=== PATIENT | female | born 1985 | race Caucasian/White ===

== ENCOUNTER 2017-01-31 12:24 | Emergency (ER) | payer MEDICAID ==
[2017-01-31 12:29] VITALS: TEMP 97.9
[2017-01-31] MEDS ORDERED: Lidocaine 5% Patch TD STA (12:43)
[2017-01-31] MEDS ORDERED: HYDROmorphone 0.5 mg/0.5 ml ISec IM STA (12:43)
--- NOTE | 2017-01-31 12:43 | C.PDOC ---
History Of Present Illness 31 y/o female presents to the ED s/p slip and fall yesterday now complaining of lower back contusion. Pt states she slipped on wet floor while getting out of tub. Pt struck lower back on edge of tub. Pain is localized, worse with movement. Pt denies associated weakness, numbness or any other injury. SP SLIP AND FALL YESTERDAY CO LOWER BACK CONTUSION. PS SLIPPED ON WET FLOOR WHILE GETTING OUT OF TUB, STRUCK LOWER BACK ON EDGE OF TUB. PAIN LOCALIZED WORSE W MOVEMENT. NO ASSOC WEAK/NUMB. DENIES OTHER INJURY EXAM MOD DIST NONTOXIC BACK DIFFUSE TEND LOWER BACK OVER SACRUM/LS SPINE. NO DEFORM. NO SWELL. SKIN INTACT NO ERYTHEMA, BRUISING NEURO INTACT Time Seen by Provider: 01/31/17 12:37 Chief Complaint (Nursing): Back Pain History Per: Patient History/Exam Limitations: no limitations Onset/Duration Of Symptoms: Hrs Current Symptoms Are (Timing): Still Present Quality Of Discomfort: "Pain" Severity: Moderate Previous Symptoms: None Associated Symptoms: None Exacerbating Factor(s): Movement Recent travel outside of the [place]: No Past Medical History Reviewed: Historical Data, Nursing Documentation, Vital Signs Vital Signs: Last Vital Signs Temp 97.9 F 01/31/17 12:28 Pulse 76 01/31/17 12:28 Resp 20 01/31/17 12:28 BP 119/70 01/31/17 12:28 Pulse Ox 98 01/31/17 13:42 - Medical History PMH: Bipolar Disorder, Depression, Schizophrenia Family History: States: Unknown Family Hx - Social History Hx Tobacco Use: Yes Hx Alcohol Use: No Hx Substance Use: No - Immunization History Hx Tetanus Toxoid Vaccination: Yes Hx Influenza Vaccination: Yes Hx Pneumococcal Vaccination: No Review Of Systems Except As Marked, All Systems Reviewed And Found Negative. Constitutional: Negative for: Fever Musculoskeletal: Positive for: Back Pain Neurological: Negative for: Weakness, Numbness Physical Exam - Physical Exam Appears: Non-toxic, In Acute Distress (moderate) Skin: Warm, Dry, No Rash, Other (intact, no erythema or bruising) Head: Atraumatic, Normacephalic Nose: Normal Neck: Normal ROM, Supple Chest: Symmetrical Cardiovascular: Rhythm Regular Respiratory: Normal Breath Sounds, No Rales, No Rhonchi, No Wheezing Back: Paraspinal Tenderness (diffuse lower back over sacrum/LS spine; no deformity, no swelling) Extremity: Bilateral: Atraumatic Neurological/Psych: Oriented x3, Normal Speech, Normal Cognition, Normal Cranial Nerves, Normal Motor, Normal Sensation Gait: Steady ED Course And Treatment - Laboratory Results Urine POC: Negative O2 Sat by Pulse Oximetry: 98 (on room air) Pulse Ox Interpretation: Normal - Other Rad LS SPINE X-Ray: Interpreted by Me (NEG) SACRUM COCCYX X-Ray: Interpreted by Me (NEG) Progress - Re-Evaluation Re-evaluation Note: 01/31/17 12:40 njrx reviewed, NO RECENT NARCOTIC RX NOTED 01/31/17 14:13 MIN IMPROVE. NEG XRAY. DC FU PMD - Data Reviewed Data Reviewed: Diagnostic imaging, Old records, Other - Continuity of Care Discussed patient case with:: Patient Medical Decision Making Medical Decision Making: Plan: dilaudid, lidoderm, XR lumbar and sacrum Disposition Counseled Patient/Family Regarding: Diagnosis, Need For Followup, Rx Given - Disposition Referrals: YOUR,PMD [Other] Disposition: HOME/ ROUTINE Disposition Time: 14:13 Condition: IMPROVED Prescriptions: Lidocaine 5% [Lidoderm] 1 ea TD PRN PRN #10 patch PRN Reason: Pain, Moderate (4-7) Naproxen 500 mg PO BID #30 tab oxyCODONE/Acetaminophen [Percocet 5/325 mg Tab] 1 ea PO Q6 PRN #8 tab PRN Reason: Pain, Moderate (4-7) Instructions: Contusion in Adults (ED), Back Pain (ED) - Clinical Impression Clinical Impression: Back contusion, Lumbar sprain - Scribe Statement The provider has reviewed the documentation as recorded by the Tang Womack Provider Attestation: All medical record entries made by the Tang were at my direction and personally dictated by me. I have reviewed the chart and agree that the record accurately reflects my personal performance of the history, physical exam, medical decision making, and the department course for this patient. I have also personally directed, reviewed, and agree with the discharge instructions and disposition.
[2017-01-31] MEDS ORDERED: HYDROmorphone 1 mg/ml ISec ONE (12:56)
[2017-01-31] MEDS ORDERED: Lidocaine 5% Patch TD ONE ×2 (12:56→14:10)
[2017-01-31] MEDS ORDERED: Oxycodone/Acetaminophen 5/325 mg Tab PO STA (14:10)
[2017-01-31] MEDS ORDERED: Oxycodone/Acetaminophen 5/325 mg Tab ONE (14:10)
[2017-01-31 14:27] VITALS: BP 123/82; PULSE 86; RESP 18; O2SAT 97
--- NOTE | 2017-01-31 17:56 | RAD ---
PROCEDURE: Radiographs of the Lumbar Spine. HISTORY: TRAUMA COMPARISON: 01/31/2017 FINDINGS: BONES: Normal alignment. No listhesis. No fracture. DISC SPACES: Mild space narrowing L4-L5 with small anterolateral and posterior osteophyte formation. . There appears to be some minor posterior disc space narrowing L5-S1 level with small marginal anterior osteophyte formation. OTHER FINDINGS: In situ Copper-T IUD IMPRESSION: No acute fractures. Mild DJD as described focal
--- NOTE | 2017-01-31 18:00 | RAD ---
PROCEDURE: Radiographs of the Sacrum and Coccyx HISTORY: TRAUMA COMPARISON: None available. TECHNIQUE: Frontal and lateral views of the sacrum and coccyx FINDINGS: BONES: Sacrum and coccyx unremarkable. No fracture or focal lesion. SACROILIAC JOINTS: Unremarkable. OTHER FINDINGS: In situ Copper-T IUD IMPRESSION: No definitive evidence of acute displaced fracture nor dislocation. Consider followup CT scan if symptoms persist or occult fracture suspected clinically
== END 2017-01-31 14:27 | disposition home or self-care (01) ==
LOC: C.ER 12:24
DX: S33.5XXA Sprain of ligaments of lumbar spine, initial encounter (principal); S30.0XXA Contusion of lower back and pelvis, initial encounter; W01.0XXA Fall on same level from slipping, tripping and stumbling without subsequent striking against object, initial encounter; Y93.F1 Activity, caregiving, bathing; Y92.002 Bathroom of unspecified non-institutional (private) residence as the place of occurrence of the external cause
CPT/HCPCS: 72100; 72220; 96372; 99284; J1170